=== PATIENT | female | born 1950 | race Asian ===

== ENCOUNTER 2017-02-16 06:54 | Day surgery (SDC) | payer OTHER ==
[~2017-02-16] VITALS: Ht 152.4 cm; Wt 75.8 kg
--- NOTE | ~2017-02-16 | O ---
[facility] [place] [address] OPERATIVE REPORT Name: YFN DAMON Room #: DEP [facility] M..#: [id number] Admission: 02/16/17 Attend Phys: Nellie Nieto MD, Discharge: 02/16/17 Date of : 46 Report #: [id number] THIS REPORT FOR: //name// CC: NATALY physician/PCP Nellie Nieto DATE OF SERVICE: 02/16/2017 PREOPERATIVE DIAGNOSES: 1. Chronic right lower quadrant abdominal pain. 2. Appendiceal mass. 3. Hypertension. 4. Obesity with a body mass index of 30.36. POSTOPERATIVE DIAGNOSES: 1. Chronic right lower quadrant abdominal pain. 2. Appendiceal mass. 3. Hypertension. 4. Obesity with a body mass index of 30.36. PROCEDURE PERFORMED: Laparoscopic appendectomy with partial cecectomy. SURGEON: Nellie Nieto M.D. CABLE WIRER: DINO Spangler. ANESTHESIA: General endotracheal anesthesia. ESTIMATED BLOOD LOSS: Minimal (less than 5 mL). COMPLICATIONS: None appreciated. SPECIMENS: Appendix with partial cecum to pathology. INDICATIONS: The patient is a 66-year-old [place] female who presented with chronic right lower quadrant abdominal pain for which she was referred to Gastroenterology. After a thorough examination the patient was sent for a CT scan of the abdomen and pelvis, which showed an enlarged abnormal appearing appendix with a mass at the mid portion of the appendix concerning for a mucocele and as such she was referred to hi for definitive surgical management. Intraoperative finding of the mass traversing all the way to the base of the appendix was seen that required a partial cecectomy in addition to the appendectomy today. DESCRIPTION OF PROCEDURE: After explaining the risks, benefits and alternatives of the procedure with the patient in detail in the preoperative holding area via [facility] [address] [place] [address] OPERATIVE REPORT Name: YFN DAMON Room #: DEP [facility] M.Juanjo.#: [id number] Admission: 02/16/17 Attend Phys: Nellie Nieto MD, Discharge: 02/16/17 Date of : 46 Report #: [id number] a condenser tester phone and obtaining consent, the patient was brought to the operating room and placed supine on the operating room table. After conducting a thorough timeout procedure verifying correct patient and procedure, the patient was given general endotracheal anesthesia. Once adequate anesthesia was obtained, her sequential compression devices were hooked up to pneumatic compression device. She was given a preoperative dose of antibiotics in line with the SCIP protocol. The patient's abdomen was prepped and draped in standard surgical sterile fashion. A 5 mL of 0.5% Marcaine with epinephrine was used to anesthetize the skin in the infraumbilical location. A #15 bladed scalpel was used to create a 1 cm curvilinear incision at this location. A 12-mm Visiport was placed over a 0-degree 5-mm laparoscope and was introduced through this incision site. Once intraabdominal placement was verified visually, the obturator for the trocar and the laparoscope were both removed and the abdomen was insufflated to 15 mmHg using carbon dioxide gas. The laparoscope was changed to a 5-mm 30-degree laparoscope, which was reintroduced through this trocar. The entire abdomen was evaluated to ensure no injury upon entry. I now placed the patient in Trendelenburg position and I placed two additional 5 mm trocars. One was placed in the suprapubic location and the second was placed in the left lower quadrant. Both additional 5 mm ports were placed under direct vision after anesthetizing the skin at each location with 5 mL of 0.5% Marcaine with epinephrine, and I had created small skin nicks using #15 bladed scalpel. The patient was now airplaned with right side slightly elevated and I proceeded to easily identify the appendix with a large mass arising from the mid portion. This mass was tethered to the right pelvic side wall. Harmonic scalpel was used to take down all of these adhesions tethering it to the pelvic side wall and I was ultimately able to elevate it. It was soft and spongy consistent with a possible mucocele and care was taken not to rupture it within the abdomen whatsoever. The distal tip of the appendix appeared normal; however, the appendiceal mass went all the way to the base of the appendix. As it was evident I was not going to be able to do simply an appendectomy at this juncture, I mobilized the right colon along the white line of Toldt using Harmonic scalpel. Once this had been performed, the terminal ileum was elevated and I proceeded to dissect under the cecum to create a window where it was soft and healthy ensuring that I was not encroaching upon the ileocecal valve whatsoever. Once I had elevated this, I used the Harmonic scalpel to take down the mesoappendix all the way to the level of proposed transection. The [place] 45 mm stapler with a blue load was now passed into the abdomen to the infraumbilical trocar after replacing the laparoscope to the left lower quadrant port. The blue load was utilized and one blade of the stapler was passed underneath the cecum where it was clamped and fired at a soft healthy juncture, again ensuring that I was not encroaching upon the ileocecal valve, but also was well away from the wall of the mass in question. The stapler was fired completely transecting the appendix and an oblique portion of the cecum. A second firing of the stapler with another blue load was used to complete the transection as the initial stapler load went all the way to the end, but did not transect all the way to the end. This freed the entire specimen. [facility] [address] [place] [address] OPERATIVE REPORT Name: CRISS DAMONROSY Victor [facility] [id number] Admission: 02/16/17 Attend Phys: Nellie Nieto MD, Discharge: 02/16/17 Date of : 46 Report #: [id number] bag was placed in the infraumbilical trocar and the specimen was placed within it under direct vision. The pursestring suture was drawn and specimen was removed from the abdomen under direct vision via the infraumbilical trocar. I then placed a [id number] fascial closing suture using 0 PDS suture on a Shalom-Lisa suture passer device around the infraumbilical incision. This was tagged with a hemostat and the trocars were placed under direct vision. Laparoscope was placed back through the infraumbilical trocar and the staple line was evaluated. We had a good hemostasis along the staple line and the mesentery was slightly raw but had good hemostasis. I asked for Aracely; however, we were unable to locate any and as such 10 mL of Tisseel on the Duplospray device was used to coat the entirety of the staple line as well as the mesentery in the right lower quadrant for both assistance in sealing the staple line shut, but also more importantly for complete hemostasis. One final evaluation of the intra-abdominal domain showed no pathology whatsoever. The laparoscope was removed, the infraumbilical trocars removed and the suture was tied down while still slightly insufflated to ensure it did not catch a loop of bowel or omentum in the suture repair. The abdomen was fully desufflated and all remaining trocars removed under direct vision. A 4-0 Monocryl was used in a standard subcuticular fashion for all skin incisions and Dermabond glue was applied to all skin wounds. At the end of the procedure all instrument, needle and sponge counts were correct. The patient tolerated the procedure without incident, was awakened in the operating room, and transitioned to the recovery room in stable condition with no apparent complications. It should be noted I did cut the specimen open on the back table showing significant mucin and mucoid material within the lumen of the appendix consistent with a mucocele. The specimen will be sent to pathology for official diagnosis, however. <ELECTRONICALLY SIGNED> By: Nellie Nieto MD, FACS 02/16/17 1620 [id number] Nellie Nieto MD, FACS /nt
--- NOTE | ~2017-02-16 | S ---
[facility] [place] [address] SURGICAL PATH RPT PROCEDURE Name: YFN DAMON Room #: DEP [facility] M..#: [id number] Admission: 02/16/17 Date of : 46 Discharge: 02/16/17 Report #: [id number] Path Case #: [id number] PATHOLOGY REPORT COLLECTION DATE: 02/16/2017 RECEIVED DATE: 02/16/2017 SUBMITTING PHYS: Dr. 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 - Surgical margin free of malignancy. - Fibrous obliteration of the tip. SYNOPTIC CANCER STAGING REPORT SPECIMEN Specimen: Appendix Procedure: Appendectomy TUMOR Primary Tumor Site: Appendix, not otherwise specified Histologic Type: Low-grade appendiceal mucinous neoplasm Histologic Grade: Grade 1 (well differentiated) Tumor Size: Greatest dimension (cm): 3.0 Tumor Deposits: Not identified Tumor Extent Microscopic Tumor Extension: No invasion (high-grade dysplasia / intraepithelial carcinoma) Accessory Tumor Findings Lymph-Vascular Invasion: Not identified Perineural Invasion: Not identified MARGINS All margins uninvolved by invasive carcinoma Distance of Tumor From Closest Margin: Specify (mm): 2 Specify Margin: Proximal Proximal Margin: Uninvolved by invasive carcinoma Uninvolved by appendiceal mucinous neoplasm [facility] [address] [place] [address] SURGICAL PATH RPT PROCEDURE Name: YFN DAMON [facility] [id number] Admission: 02/16/17 Date of : 46 Discharge: 02/16/17 Report #: [id number] Path Case #: [id number] Mesenteric Margin: Cannot be assessed LYMPH NODES Regional Lymph Nodes: No nodes submitted or found STAGE (PTNM) Primary Tumor (pT): pTX: Primary tumor cannot be assessed Regional Lymph Nodes (pN): pNX: Cannot be assessed Distant Metastasis (pM): Not applicable - pM cannot be determined from the submitted specimen(s) COMMENT Per the AJCC classiffication, the pathologic staging is pTis. COMMENT: [place]: Dr. Leesa Conway. Findings are discussed with Dr. Nellie Nieto at 12:50 PM on 02/21/17. (IUV; 02/21/17) PATHOLOGIST: Makenna Kuhn M.D. REPORT ELECTRONICALLY SIGNED BY: Makenna Kuhn M.D. DATE/TIME: 02/21/2017 13:03 * * * * * * * * * * * * GROSS PATHOLOGY: Received in formalin labeled "suyapa James," is an appendix measuring 6.6 cm in length and 2.0 cm in diameter with a moderate amount of attached mesoappendix. The serosal surface is roberto-brown, shaggy with adhesions, and displays an opened mucocele measuring up to 3.0 cm in greatest dimension. Sectioning of the normal-appearing appendix reveals a dilated lumen containing roberto-brown fecal and mucoid material. Further sectioning of the mucocele reveals a cystic cavity containing yellow-roberto mucoid material. No additional masses or lesions are grossly identified. Breaker Machine Tender sections are submitted in cassettes A1-A4. (SDY; 02/17/2017) After initial microscopic analysis additional sections are submitted in cassettes A5-A9. (SDY; 02/20/2017) CLINICAL HISTORY: Infected appendix INITIAL CPT CODE(S): 17410 Professional services performed by [facility] at [address] [address] SURGICAL PATH RPT PROCEDURE Name: YFN DAMON Room #: [facility] Ulises#: [id number] Admission: 02/16/17 Date of : 46 Discharge: 02/16/17 Report #: [id number] Path Case #: [id number] , [place] [address] Technical services performed by [facility] at [address] [place] [address], [address], [place] [address]. [facility] [address] [place] [address] PHONE: [phone] DIRECTOR: Irwin Braga M.D. * * * END OF REPORT * * *
[2017-02-16 09:12] LABS: CALCIUM 9.3 mg/dL (8.5-10.1); CREATININE 0.7 mg/dL (0.6-1.0); POTASSIUM 3.2 mmol/L (3.5-5.1)
[2017-02-16] MEDS ORDERED: SENOKOT-S1 TA2 PO (11:20)
[2017-02-16] MEDS ORDERED: HYDROCODONE-AP1 EAC6 PO (11:20)
[2017-02-16] MEDS ORDERED: COZAAR 50 MG TA50 M2 PO (11:48)
[2017-02-16 14:01] VITALS: BP 190/86
== END 2017-02-16 12:30 | disposition home or self-care (01) ==
LOC: OR 06:54 → TBA 06:54 → OR 09:09
PROVIDERS: Surgery
DX: C18.1 Malignant neoplasm of appendix (principal); G89.29 Other chronic pain; I10 Essential (primary) hypertension; E66.09 Other obesity due to excess calories; Z68.30 Body mass index [BMI] 30.0-30.9, adult; Z79.899 Other long term (current) drug therapy; Z98.890 Other specified postprocedural states
CPT/HCPCS: 50010; 50101; 50249; 50411; 50555; 50558; 50739; 50740; 50962; 51437; 51489; 51975; 52182; 52265; 53307; 54022; 54118; 56525; 56526; 62110; 62900; 70005